=== PATIENT | male | born 1995 | race Asian ===

== ENCOUNTER 2017-09-18 12:48 | Emergency (ER) | payer OTHER ==
[~2017-09-18] VITALS: Ht 180.3 cm; Wt 91.2 kg
[2017-09-18 12:53] VITALS: TEMP 36.8; Ht 180.3 cm; Wt 91.2 kg
--- NOTE | 2017-09-18 13:14 | EMERGENCY ROOM VISIT NOTE ---
History Report prepared by Glen: Garry Canseco Under the Supervision of: Dr. Shady Johnson M.D. First contact with patient: 12:59 Chief Complaint: RECTAL BLEEDING Stated Complaint: POOPING BLOOD History of Present Illness The patient is a 22 year old male who presents to the Emergency Room with complaints of intermittent rectal bleeding that began a year ago. He rates rectal pain that is discomfort as a 4/10 in severity. The patient states he has been have bloody stools for over a year. He reports that he went the a physician in [facility] when it first occurred. He reports that the physician did lab work and told him he was not concerned with the problem. The patient states he continued to experience blood in his stools intermittently for the last year. He reports that he typically noticed blood in the water of the bowel after a bowel movement about once a week. The patient states he also noticed blood when he wipes. He reports he had another bloody bowel movement today that was more severe than usual. The patient states that before the bowel movement, he noticed he was uncomfortable. The patient denies nausea, vomiting, recent diarrhea, medical problems, taking medications, and pain with bowel movements. He reports he typically eats fast food and does not eat many fruits or vegetables. The patient states about "30 percent of my meals are [employer] or [employer]". He denies a family history of colon cancer. Source of History: patient Onset: a year ago Position: other (rectum) Symptom Intensity: 4/10 Quality: other (bloody stools) Timing: intermittent Associated Symptoms: No nausea, No vomiting, No diarrhea Note: Denies pain with bowel movement Review of Systems See HPI for pertinent positives and negatives. A total of ten systems were reviewed and were otherwise negative. Past Medical & Surgical Medical Problems: (1) No active medical problems Family History Patient reports no known family medical history. Social History Smoking Status: Never Smoker Alcohol Use: occasionally Housing Status: lives with roommate Occupation Status: [employer] student Current/Historical Medications No Active Prescriptions or Reported Meds Allergies Coded Allergies: No Known Allergies (Unverified , 09/18/17) Physical Exam Vital Signs Date Time Temp Pulse Resp B/P (MAP) Pulse Ox O2 Delivery O2 Flow Rate FiO2 09/18/17 13:39 74 16 120/64 100 Room Air 09/18/17 12:53 36.8 81 16 122/81 97 Room Air Physical Exam Physical Exam GENERAL: He is oriented to person, place, and time. He appears well-developed and well-nourished. He does not appear distressed. ____ HENT: Exam performed. Head: Normocephalic and atraumatic. Right Ear: External ear normal. No mastoid tenderness. Left Ear: External ear normal. No mastoid tenderness. Mouth/Throat: The oropharynx is clear and moist. No trismus in the jaw. No dental abscesses or uvula swelling. No oropharyngeal exudate or tonsillar abscesses. ____ EYES: Conjunctivae and EOM are normal. Pupils are equal, round, and reactive to light. Right eye exhibits no discharge. Left eye exhibits no discharge. No scleral icterus. ____ NECK: Normal range of motion. Neck supple. No JVD present. No spinous process tenderness present. No carotid bruit present. No rigidity. No tracheal deviation and normal range of motion present. No Brudzinski's sign and no Kernig 's sign noted. ____ CV: Normal rate, regular rhythm, normal heart sounds and intact distal pulses. There is no peripheral edema. Palpable radial pulses bue. ____ PULM/CHEST: Effort normal and breath sounds normal. No respiratory distress. No stridor. He has no wheezes. He has no rales. Chest Wall: He exhibits no tenderness. ____ ABD: The abdomen is soft. Bowel sounds are normal. He has no distension. No mass is present. There is no tenderness. There is no rebound, no guarding, no Horton's sign and no tenderness at McBurney's point. Rovsig negative MUSC/SKEL: Normal range of motion. There is no peripheral edema, tenderness or deformity. LYMPH: No cervical adenopathy. ____ NEURO: He is alert and oriented to person, place, and time. He has normal strength. No cranial nerve deficit or sensory deficit. Coordination and gait normal. GCS eye subscore is 4. GCS verbal subscore is 5. GCS motor subscore is 6. Cerebellar tests wnl. ____ SKIN: Skin is warm and dry. He is not diaphoretic. ____ PSYCH: He has a normal mood and affect. His behavior is normal. Judgment and thought content normal. ____ RECTAL: Anal fissure. Medical Decision & Procedures ED Course 1301: The patient was evaluated in room C03. A complete history and physical exam was performed. Patient has anal fissure on physical exam. Encouraged to increase amount of fiber intake he takes as well as use Preparation H suppositories and cream. DISCHARGE - Plan of care discussed with patient and questions answered. The patient was given both verbal and printed discharge instructions. The patient verbalized understanding and ability to comply. The patient is to seek outpatient follow up as noted in the discharge instructions. The patient verbalized understanding and ability to comply. The patient is discharged in stable condition. The patient was instructed to return for worsening symptoms. Medical Decision The patient was evaluated in room C03. A complete history and physical exam was performed. Patient has anal fissure on physical exam. Encouraged to increase amount of fiber intake he takes as well as use Preparation H suppositories and cream. DISCHARGE - Plan of care discussed with patient and questions answered. The patient was given both verbal and printed discharge instructions. The patient verbalized understanding and ability to comply. The patient is to seek outpatient follow up as noted in the discharge instructions. The patient verbalized understanding and ability to comply. The patient is discharged in stable condition. The patient was instructed to return for worsening symptoms. Medication Reconcilliation Current Medication List: was personally reviewed by me Blood Pressure Screening Patient's blood pressure: Normal blood pressure Impression Primary Impression: Anal fissure Scribe Attestation The scribe's documentation has been prepared under my direction and personally reviewed by me in its entirety. I confirm that the note above accurately reflects all work, treatment, procedures, and medical decision making performed by me. The chart was completed utilizing [employer] Speech voice recognition software. Grammatical errors, random word insertions, pronoun errors, and incomplete sentences are an occasional consequence of this system due to software limitations, ambient noise, and hardware issues. Any formal questions or concerns about the content, text, or information contained within the body of this dictation should be directly addressed to the physician for clarification. Departure Information Dispostion Home / Self-Care Prescriptions No Active Prescriptions or Reported Meds Referrals No Doctor, Assigned (PCP) Forms HOME CARE DOCUMENTATION FORM, IMPORTANT VISIT INFORMATION, WORK / SCHOOL INSTRUCTIONS Patient Instructions ED Fissure Anal Ch, My [facility] Additional Instructions Use Preparation H cream and suppositories as directed Increase the amount of fiber you eat including leafy green vegetables such as kale, spinach, and fresh fruits and vegetables.
[2017-09-18 13:39] VITALS: BP 120/64; PULSE 74; O2SAT 100
== END 2017-09-18 13:41 | disposition home or self-care (01) ==
LOC: C.EDB 12:49 → C.EDC 13:41
DX: K60.2 Anal fissure, unspecified (principal)